=== PATIENT | male | born 2005 | race Caucasian/White ===

== ENCOUNTER 2024-09-29 23:27 | Inpatient (IN) | payer OTHER ==
[~2024-09-29] VITALS: Ht 180.3 cm; Wt 98.9 kg
[2024-09-29 23:27] VITALS: PULSE 143; RESP 20; O2SAT 98
[2024-09-29] MEDS: SODIUM CHLORIDE 0.9% 1,000 ML IV ONE (23:36)
[2024-09-29 23:56] LABS: INR 1.2; PROTHROMBIN TIME 12.4 sec (9.6-11.0)
[2024-09-30] VITALS (79 sets, daily range): BP systolic 98–132; BP diastolic 70–96; PULSE 85–115; RESP 16–29; TEMP 37.1; O2SAT 84–100
[2024-09-30 00:03] LABS: CHLORIDE 106 mEq/L (98-107); POTASSIUM 4.6 mEq/L (3.5-5.1); SODIUM 141 mEq/L (136-145)
[2024-09-30 00:03] LABS: CLARITY URINE CLOUDY (CLEAR); COLOR URINE DARK YELLOW (YELLOW); GLUCOSE URINE NEGATIVE (NEGATIVE); KETONES URINE TRACE (NEGATIVE); LEUKOCYTE ESTERASE URINE NEGATIVE (NEGATIVE); NITRITE URINE NEGATIVE (NEGATIVE); OCCULT BLOOD URINE 3+ (NEGATIVE); PH URINE 5.5 (4.5-8.0); PROTEIN URINE 3+ (NEGATIVE)
[2024-09-30 00:04] LABS: CALCIUM 8.8 mg/dL (8.7-10.4); CARBON DIOXIDE 20 mEq/L (21-32)
[2024-09-30 00:08] LABS: UREA NITROGEN BLOOD 23 mg/dL (9-23)
[2024-09-30 00:09] LABS: CREATININE 2.1 mg/dL (0.6-1.3); GLUCOSE 111 mg/dL (70-105)
[2024-09-30 00:10] LABS: ALANINE AMINOTRANSFERASE 14 IU/L (10-49); ALBUMIN 3.8 g/dL (3.2-4.8)
[2024-09-30 00:11] LABS: ASPARTATE AMINOTRANSFERASE 35 IU/L (<34); BILIRUBIN DIRECT 0.2 mg/dL (<=3.0); BILIRUBIN TOTAL 0.5 mg/dL (0.1-1.0); CREATINE KINASE 702 IU/L (46-171); PROTEIN TOTAL 6.1 g/dL (6.0-8.3)
[2024-09-30 00:13] LABS: *AMPHETAMINES SCREEN URINE PRESUMPTIVE POSITIVE (NEGATIVE); *BARBITURATES SCREEN URINE NEGATIVE (NEGATIVE); *BENZODIAZEPINES SCREEN URINE PRESUMPTIVE POSITIVE (NEGATIVE); *COCAINE SCREEN URINE NEGATIVE (NEGATIVE); CANNABINOID URINE SCREEN PRESUMPTIVE POSITIVE (NEGATIVE); METHADONE URINE SCREEN NEGATIVE (NEGATIVE); OPIATES URINE SCREEN NEGATIVE (NEGATIVE); PHENCYCLIDINE URINE SCREEN NEGATIVE (NEGATIVE)
[2024-09-30 00:14] LABS: ECSTASY MDMA SCREEN URINE CONF.TEST INDICATED (NEGATIVE)
[2024-09-30 00:18] LABS: LACTIC ACID 7.5 mmol/L (0.4-2.0)
[2024-09-30 00:25] LABS: ETHANOL BLOOD < 10 mg/dL (<10); TROPONIN I HIGH SENSITIVITY 277 ng/L (3.0-53)
[2024-09-30 00:41] LABS: BASOPHILS % 0.2 % (0.0-2.0); EOSINOPHILS % 0.1 % (0.0-5.0); HEMATOCRIT. 39.5 % (42.0-52.0); LYMPHOCYTES % 25.4 % (20.0-50.0); MEAN CORPUSCULAR VOLUME 90.9 fL (80.0-94.0); MEAN PLATELET VOLUME 7.3 fl (7.4-10.4); MONOCYTES % 5.2 % (2.0-8.0); NEUTROPHILS % 69.1 % (40.0-76.0); PLATELET 169 x1000/uL (130-400); RED BLOOD CELL COUNT 4.35 mill/uL (4.7-6.1); RED CELL DISTRIBUTION WIDTH 12.5 % (11.6-14.6); WHITE BLOOD COUNT 7.5 x1000/uL (4.5-11.0)
[2024-09-30 01:11] LABS: INFLUENZA TYPE A Presumptive Negative (Pres. Neg.)
[2024-09-30 01:12] LABS: INFLUENZA TYPE B Presumptive Negative (Pres. Neg.)
[2024-09-30] MEDS: SODIUM CHLORIDE 0.9% 1,000 ML IV ONE (01:13)
[2024-09-30] MEDS: SODIUM BICARBONATE 8.4% 50MEQ/50ML SYR IV NR (01:14)
[2024-09-30] MEDS ORDERED: DOCUSATE SODIUM 100MG CAPSULE PO PRN (02:15)
[2024-09-30] MEDS ORDERED: GUAIFENESIN 200MG/10ML SUGAR FREE UDC PO PRN (02:15)
[2024-09-30] MEDS ORDERED: ONDANSETRON HCL 4MG/2ML INJ IV PRN (02:15)
[2024-09-30] MEDS ORDERED: ACETAMINOPHEN 650MG SUPP PR PRN (02:15)
[2024-09-30] MEDS ORDERED: MIDAZOLAM 100MG/100ML PMX 100 ML IV PRN (02:15)
[2024-09-30] MEDS ORDERED: CLONIDINE 0.1MG TABLET PO PRN (02:15)
[2024-09-30] MEDS ORDERED: MAGNESIUM/ALUMINUM HYDROXIDE/SIMETHICONE 30ML UDC PO PRN (02:15)
[2024-09-30] MEDS ORDERED: LORAZEPAM 0.5MG TABLET PO PRN (02:15)
[2024-09-30 02:16] LABS: BG BASE EXCESS -6.7 mmol/L (-2.0-3.0); BG CARBOXYHEMOGLOBIN 0.1 % (0.5-1.5); BG DEOXYHEMOGLOBIN 0.2 % (0.0-5.0); BG FRACTION INSPIRED OXYGEN 100; BG HCO3 ACT 21.5 mmol/L (21.0-28.0); BG METHEMOGLOBIN 0.3 % (0.5-1.5); BG OXYGEN SATURATION 99.8 % (94.0-98.0); BG OXYHEMOGLOBIN 99.4 % (94.0-98.0); BG PCO2 53.1 mmHg (35.0-48.0); BG PH 7.225 (7.350-7.450); BG PO2 550.9 mmHg (83.0-108.0); BG SAMPLE SITE RIGHT RADIAL; BG TOTAL HEMOGLOBIN 15.3 g/dL (13.5-17.5); BG TOTAL RESPIRATORY RATE 21 b/min; BG VENT MODE VENT - AC
[2024-09-30] MEDS: MIDAZOLAM 100MG/100ML PMX 100 ML IV PRN (02:25)
[2024-09-30] MEDS ORDERED: CEFTRIAXONE 2GM/50ML 50 ML IV SCH (02:30)
[2024-09-30] MEDS: LACTATED RINGERS 1,000 ML IV SCH (02:32)
[2024-09-30] MEDS: MIDAZOLAM HCL 2 MG/2 ML VIAL IV NR (02:32)
[2024-09-30] MEDS ORDERED: SODIUM CHLORIDE 10% FOR INH 15ML NEB INH NR (03:00)
[2024-09-30] MEDS ORDERED: FENTANYL 2500MCG/250ML PMX 250 ML IV PRN (03:30)
[2024-09-30] MEDS: LEVETIRACETAM 1000MG PREMIX 100 ML IV NR (03:39)
[2024-09-30] MEDS: FENTANYL CITRATE 2,500 MCG in SODIUM CHLORIDE 0.9% 200 ML IV PRN (03:48)
[2024-09-30] MEDS: FENTANYL CITRATE/PF 50MCG/ML 2ML VIAL IV NR (03:53)
[2024-09-30] MEDS: ASPIRIN 300MG SUPP PR NR (03:54)
[2024-09-30] MEDS: AZITHROMYCIN 500MG/250ML 250 ML IV SCH (03:58)
[2024-09-30 04:20] LABS: TROPONIN I HIGH SENSITIVITY 867 ng/L (3.0-53)
[2024-09-30 04:44] LABS: BACTERIA URINE TRACE; RBC URINE 0-2 /hpf (0-2); SQUAMOUS EPITHELIAL CELL URINE 1+ /lpf (RARE/1+)
[2024-09-30 04:45] LABS: MUCUS URINE 2+ /lpf (NONE/TRACE)
[2024-09-30 06:19] LABS: PHOSPHORUS 1.1 mg/dL (2.5-4.9)
[2024-09-30 06:29] LABS: CREATINE KINASE 4675 IU/L (46-171)
[2024-09-30 07:59] LABS: TROPONIN I HIGH SENSITIVITY 1065 ng/L (3.0-53)
[2024-09-30 08:11] LABS: POTASSIUM 3.9 mEq/L (3.5-5.1)
[2024-09-30 08:12] LABS: CALCIUM 7.8 mg/dL (8.7-10.4)
[2024-09-30 08:17] LABS: CREATININE 1.6 mg/dL (0.6-1.3)
[2024-09-30] MEDS: IPRATROPIUM/ALBUTEROL 0.5-3(2.5)MG/3ML NEB HHN PRN (08:33)
[2024-09-30] MEDS: PANTOPRAZOLE SODIUM 40 MG/VIAL IV SCH (08:35)
[2024-09-30] MEDS: ENOXAPARIN 40MG/0.4ML SYR SUBCUT SCH (08:35)
[2024-09-30] MEDS: LEVETIRACETAM 500MG PREMIX 100 ML IV SCH (08:38)
[2024-09-30] MEDS: SODIUM CHLORIDE 0.9% 1,000 ML IV SCH (08:38)
[2024-09-30] MEDS ORDERED: LORAZEPAM 2MG/ML INJ IV PRN (08:45)
[2024-09-30 08:49] LABS: HEMATOCRIT. 43.5 % (42.0-52.0); HEMOGLOBIN. 14.2 g/dL (14.0-18.0); MEAN CORPUSCULAR HGB CONC 32.7 g/dL (31.0-37.0); MEAN CORPUSCULAR VOLUME 88.6 fL (80.0-94.0); MEAN PLATELET VOLUME 7.5 fl (7.4-10.4); PLATELET 163 x1000/uL (130-400); RED BLOOD CELL COUNT 4.91 mill/uL (4.7-6.1); WHITE BLOOD COUNT 12.2 x1000/uL (4.5-11.0)
[2024-09-30 09:09] LABS: DIFFERENTIAL COMMENT 1
[2024-09-30 11:25] LABS: NUCLEATED RED BLOOD CELLS 1 /100 WBC; PLATELET ESTIMATE NORMAL
[2024-09-30] MEDS: DEXT 5%/0.9% NACL 1,000 ML IV SCH (12:00)
[2024-09-30] MEDS: SODIUM PHOSPHATE 30 MMOL in DEXT 5% WATER 490 ML IV NR (13:55)
[2024-09-30 14:23] LABS: BG BASE EXCESS -3.5 mmol/L (-2.0-3.0); BG CARBOXYHEMOGLOBIN 0.5 % (0.5-1.5); BG DEOXYHEMOGLOBIN 10.6 % (0.0-5.0); BG FRACTION INSPIRED OXYGEN 50; BG OXYGEN SATURATION 89.3 % (94.0-98.0); BG OXYHEMOGLOBIN 88.9 % (94.0-98.0); BG PCO2 36.8 mmHg (35.0-48.0); BG PH 7.375 (7.350-7.450); BG SAMPLE SITE RIGHT RADIAL; BG VENT MODE VENT - AC
[2024-09-30 15:28] LABS: CREATINE KINASE MB FRACTION 62.6 ng/mL (0.5-3.6)
[2024-09-30] MEDS: ACETAMINOPHEN 650MG/20.3ML UDC PO PRN (15:47)
[2024-10-01] VITALS (94 sets, daily range): BP systolic 87–128; BP diastolic 52–87; PULSE 83–124; RESP 11–34; TEMP 99.6–101.3; O2SAT 93–100
[2024-10-01 06:11] LABS: BASOPHILS % 0.1 % (0.0-2.0); HEMATOCRIT. 40.5 % (42.0-52.0); HEMOGLOBIN. 13.5 g/dL (14.0-18.0); LYMPHOCYTES % 14.2 % (20.0-50.0); MEAN CORPUSCULAR HEMOGLOBIN 30.1 pg (28.0-32.0); MEAN CORPUSCULAR HGB CONC 33.2 g/dL (31.0-37.0); MEAN CORPUSCULAR VOLUME 90.8 fL (80.0-94.0); MEAN PLATELET VOLUME 7.5 fl (7.4-10.4); MONOCYTES % 11.4 % (2.0-8.0); NEUTROPHILS % 74.3 % (40.0-76.0); PLATELET 58 x1000/uL (130-400); RED BLOOD CELL COUNT 4.46 mill/uL (4.7-6.1); RED CELL DISTRIBUTION WIDTH 13.1 % (11.6-14.6); WHITE BLOOD COUNT 10.1 x1000/uL (4.5-11.0)
[2024-10-01 06:45] LABS: CARBON DIOXIDE 24 mEq/L (21-32); CHLORIDE 110 mEq/L (98-107); SODIUM 148 mEq/L (136-145)
[2024-10-01 06:46] LABS: CALCIUM 7.7 mg/dL (8.7-10.4)
[2024-10-01 06:51] LABS: CREATININE 1.2 mg/dL (0.6-1.3); GLUCOSE 97 mg/dL (70-105); UREA NITROGEN BLOOD 14 mg/dL (9-23)
[2024-10-01] MEDS ORDERED: HALOPERIDOL LACTATE 5MG/ML VIAL IM PRN ×2 (09:00→17:00)
[2024-10-01] MEDS ORDERED: LORAZEPAM 2MG/ML INJ IV PRN (09:00)
[2024-10-01 09:07] LABS: BG DEOXYHEMOGLOBIN 0.9 % (0.0-5.0); BG FRACTION INSPIRED OXYGEN 50; BG HCO3 ACT 21.4 mmol/L (21.0-28.0); BG METHEMOGLOBIN 0.3 % (0.5-1.5); BG OXYGEN SATURATION 99.1 % (94.0-98.0); BG OXYHEMOGLOBIN 98.8 % (94.0-98.0); BG PCO2 29.2 mmHg (35.0-48.0); BG PH 7.482 (7.350-7.450); BG PO2 150.5 mmHg (83.0-108.0); BG SAMPLE SITE RIGHT RADIAL; BG TOTAL HEMOGLOBIN 13.5 g/dL (13.5-17.5); BG VENT MODE VENT - AC
[2024-10-01 11:23] LABS: TROPONIN I HIGH SENSITIVITY 2303 ng/L (3.0-53)
[2024-10-01 11:36] LABS: BG BASE EXCESS -1.4 mmol/L (-2.0-3.0); BG CARBOXYHEMOGLOBIN 0.1 % (0.5-1.5); BG DEOXYHEMOGLOBIN 3.2 % (0.0-5.0); BG FRACTION INSPIRED OXYGEN 40; BG HCO3 ACT 23.4 mmol/L (21.0-28.0); BG METHEMOGLOBIN 0.3 % (0.5-1.5); BG OXYGEN SATURATION 96.8 % (94.0-98.0); BG OXYHEMOGLOBIN 96.4 % (94.0-98.0); BG PCO2 39.5 mmHg (35.0-48.0); BG PO2 88.1 mmHg (83.0-108.0); BG SAMPLE SITE RIGHT RADIAL; BG TOTAL HEMOGLOBIN 13.8 g/dL (13.5-17.5); BG VENT MODE VENT - CPAP
[2024-10-01] MEDS: LEVOFLOXACIN 750MG PREMIX 150 ML IV SCH (18:21)
[2024-10-01] MEDS: ACETAMINOPHEN 650MG/20.3ML UDC PO SCH (20:13)
[2024-10-01] MEDS: LORAZEPAM 2MG/ML INJ IV PRN (22:03)
[2024-10-02] VITALS (26 sets, daily range): BP systolic 59–149; BP diastolic 25–106; PULSE 86–121; RESP 12–36; TEMP 37.3–38.4; O2SAT 80–99
[2024-10-02] MEDS: ACETAMINOPHEN 650MG/20.3ML UDC PO PRN (04:23)
[2024-10-02 05:57] LABS: HEMOGLOBIN 12.4 g/dL (14.0-18.0); MEAN CORPUSCULAR HGB CONC 33.4 g/dL (31.0-37.0); MEAN CORPUSCULAR VOLUME 89.7 fL (80.0-94.0); PLATELET 69 x1000/uL (130-400); RED BLOOD CELL COUNT 4.13 mill/uL (4.7-6.1); RED CELL DISTRIBUTION WIDTH 12.9 % (11.6-14.6); WHITE BLOOD COUNT 8.4 x1000/uL (4.5-11.0)
[2024-10-02 06:53] LABS: CHLORIDE 112 mEq/L (98-107); SODIUM 142 mEq/L (136-145)
[2024-10-02 06:54] LABS: CALCIUM 8.1 mg/dL (8.7-10.4); CARBON DIOXIDE 24 mEq/L (21-32)
[2024-10-02 06:59] LABS: CREATININE 0.8 mg/dL (0.6-1.3); GLUCOSE 118 mg/dL (70-105); UREA NITROGEN BLOOD 8 mg/dL (9-23)
[2024-10-02 07:01] LABS: ALANINE AMINOTRANSFERASE 384 IU/L (10-49); ALBUMIN 3.2 g/dL (3.2-4.8); ASPARTATE AMINOTRANSFERASE 414 IU/L (<34); BILIRUBIN DIRECT 0.7 mg/dL (<=3.0); BILIRUBIN TOTAL 1.6 mg/dL (0.1-1.0); PROTEIN TOTAL 5.3 g/dL (6.0-8.3)
[2024-10-03] VITALS (7 sets, daily range): BP systolic 119–134; BP diastolic 64–89; PULSE 88–100; RESP 18–20; TEMP 36.4–39.7; O2SAT 95–98
[2024-10-03] MEDS: LORAZEPAM 2MG/ML INJ IV NR (00:56)
[2024-10-03] MEDS: HALOPERIDOL LACTATE 5MG/ML VIAL IM NR (02:29)
[2024-10-03 06:51] LABS: HEMATOCRIT 36.1 % (42.0-52.0); HEMOGLOBIN 12.2 g/dL (14.0-18.0); MEAN CORPUSCULAR HEMOGLOBIN 29.7 pg (28.0-32.0); MEAN CORPUSCULAR HGB CONC 33.8 g/dL (31.0-37.0); MEAN CORPUSCULAR VOLUME 87.8 fL (80.0-94.0); PLATELET 84 x1000/uL (130-400); RED BLOOD CELL COUNT 4.11 mill/uL (4.7-6.1); RED CELL DISTRIBUTION WIDTH 12.5 % (11.6-14.6); WHITE BLOOD COUNT 8.3 x1000/uL (4.5-11.0)
[2024-10-03 07:12] LABS: CHLORIDE 109 mEq/L (98-107); POTASSIUM 3.8 mEq/L (3.5-5.1); SODIUM 142 mEq/L (136-145)
[2024-10-03 07:13] LABS: CALCIUM 8.8 mg/dL (8.7-10.4); CARBON DIOXIDE 23 mEq/L (21-32)
[2024-10-03 07:18] LABS: CREATININE 0.7 mg/dL (0.6-1.3); UREA NITROGEN BLOOD 8 mg/dL (9-23)
[2024-10-03 07:26] LABS: GLUCOSE 91 mg/dL (70-105)
[2024-10-03 07:35] LABS: CREATINE KINASE 27206 IU/L (46-171)
[2024-10-03] MEDS: ALPRAZOLAM 0.25 MG TABLET PO NR (13:53)
[2024-10-03 16:03] LABS: ALANINE AMINOTRANSFERASE 395 IU/L (10-49); ALBUMIN 3.7 g/dL (3.2-4.8); ASPARTATE AMINOTRANSFERASE 692 IU/L (<34); BILIRUBIN DIRECT 0.7 mg/dL (<=3.0); BILIRUBIN TOTAL 1.6 mg/dL (0.1-1.0); PROTEIN TOTAL 6.2 g/dL (6.0-8.3)
[2024-10-03 21:58] LABS: AMMONIA 22 uMol/L (<32)
[2024-10-03 22:13] LABS: HEPATITIS B SURFACE ANTIGEN NEGATIVE (Negative)
[2024-10-03 22:34] LABS: HEPATITIS A AB IGM NEGATIVE (Negative); HEPATITIS B CORE AB IGM NEGATIVE (Negative)
[2024-10-03 22:35] LABS: HEPATITIS C AB NON REACTIVE (Neg) (Negative)
[2024-10-04] VITALS: BP 119/70; PULSE 79; RESP 18; TEMP 36.4; O2SAT 95
[2024-10-04 04:00] VITALS: BP 127/70; PULSE 85; RESP 15; TEMP 37; O2SAT 96
[2024-10-04 08:00] VITALS: BP 125/85; PULSE 100; RESP 18; TEMP 37.5; O2SAT 98
[2024-10-04 12:00] VITALS: BP 133/80; PULSE 18; RESP 18; TEMP 37.5; O2SAT 98
[2024-10-04 12:53] LABS: HEMATOCRIT 40.6 % (42.0-52.0); HEMOGLOBIN 13.6 g/dL (14.0-18.0); MEAN CORPUSCULAR HEMOGLOBIN 29.5 pg (28.0-32.0); MEAN CORPUSCULAR HGB CONC 33.6 g/dL (31.0-37.0); MEAN CORPUSCULAR VOLUME 87.6 fL (80.0-94.0); PLATELET 150 x1000/uL (130-400); RED BLOOD CELL COUNT 4.63 mill/uL (4.7-6.1); RED CELL DISTRIBUTION WIDTH 12.5 % (11.6-14.6); WHITE BLOOD COUNT 6.8 x1000/uL (4.5-11.0)
[2024-10-04 13:05] LABS: CHLORIDE 109 mEq/L (98-107); POTASSIUM 3.8 mEq/L (3.5-5.1); SODIUM 141 mEq/L (136-145)
[2024-10-04 13:06] LABS: CALCIUM 9.2 mg/dL (8.7-10.4); CARBON DIOXIDE 22 mEq/L (21-32)
[2024-10-04 13:11] LABS: CREATININE 0.7 mg/dL (0.6-1.3); GLUCOSE 104 mg/dL (70-105); UREA NITROGEN BLOOD 11 mg/dL (9-23)
[2024-10-04 13:13] LABS: ALANINE AMINOTRANSFERASE 526 IU/L (10-49); ALBUMIN 3.9 g/dL (3.2-4.8); ASPARTATE AMINOTRANSFERASE > 1000 IU/L (<34); BILIRUBIN DIRECT 0.4 mg/dL (<=3.0); BILIRUBIN TOTAL 1.1 mg/dL (0.1-1.0); PROTEIN TOTAL 6.7 g/dL (6.0-8.3)
[2024-10-04 13:28] LABS: CREATINE KINASE > 39000 IU/L (46-171)
[2024-10-04 16:00] VITALS: BP 144/81; PULSE 92; RESP 18; TEMP 37.2; O2SAT 99
[2024-10-04 20:00] VITALS: BP 130/77; PULSE 76; RESP 18; TEMP 36.7; O2SAT 97
[2024-10-05] VITALS: BP 117/58; PULSE 83; RESP 18; TEMP 36.9; O2SAT 96
[2024-10-05 04:00] VITALS: BP 108/47; PULSE 73; RESP 18; TEMP 36.1; O2SAT 98
[2024-10-05 08:00] VITALS: BP 142/81; PULSE 96; RESP 18; TEMP 38.2; O2SAT 97
[2024-10-05] MEDS ORDERED: DEXTROSE 50% WATER 50ML SYRINGE IV PRN (09:45)
[2024-10-05] MEDS ORDERED: ACETYLCYSTEINE 200MG/ML 20% VIAL 30ML PO ONE (10:00)
[2024-10-05 12:00] VITALS: BP 144/72; PULSE 90; RESP 18; TEMP 36.4; O2SAT 98
[2024-10-05] MEDS: WATER IV NR ×2 (15:58→16:01)
[2024-10-05] MEDS: DEXT 5% IV NR ×2 (15:58→16:01)
[2024-10-05] MEDS: ACETYLCYSTEINE IV NR ×2 (15:58→16:01)
[2024-10-05 16:00] VITALS: BP 120/69; PULSE 81; RESP 18; TEMP 36.9; O2SAT 100
[2024-10-05 17:14] LABS: HEMATOCRIT 40.9 % (42.0-52.0); HEMOGLOBIN 13.8 g/dL (14.0-18.0); MEAN CORPUSCULAR HEMOGLOBIN 29.8 pg (28.0-32.0); MEAN CORPUSCULAR HGB CONC 33.8 g/dL (31.0-37.0); MEAN CORPUSCULAR VOLUME 88.4 fL (80.0-94.0); PLATELET 273 x1000/uL (130-400); RED BLOOD CELL COUNT 4.62 mill/uL (4.7-6.1); RED CELL DISTRIBUTION WIDTH 12.6 % (11.6-14.6); WHITE BLOOD COUNT 5.8 x1000/uL (4.5-11.0)
[2024-10-05 17:23] LABS: INR 1.1; PROTHROMBIN TIME 11.4 sec (9.6-11.0)
[2024-10-05 17:31] LABS: CHLORIDE 106 mEq/L (98-107); POTASSIUM 3.9 mEq/L (3.5-5.1); SODIUM 142 mEq/L (136-145)
[2024-10-05 17:33] LABS: CALCIUM 9.6 mg/dL (8.7-10.4); CARBON DIOXIDE 23 mEq/L (21-32)
[2024-10-05 17:38] LABS: CREATININE 0.8 mg/dL (0.6-1.3); GLUCOSE 104 mg/dL (70-105); UREA NITROGEN BLOOD 12 mg/dL (9-23)
[2024-10-05 17:39] LABS: ALBUMIN 4.2 g/dL (3.2-4.8)
[2024-10-05 17:40] LABS: ALANINE AMINOTRANSFERASE 566 IU/L (10-49); ASPARTATE AMINOTRANSFERASE > 1000 IU/L (<34); BILIRUBIN DIRECT 0.2 mg/dL (<=3.0); BILIRUBIN TOTAL 0.7 mg/dL (0.1-1.0); PROTEIN TOTAL 7.2 g/dL (6.0-8.3)
[2024-10-05 17:41] LABS: TROPONIN I HIGH SENSITIVITY 151 ng/L (3.0-53)
[2024-10-05 18:04] LABS: CREATINE KINASE > 39000 IU/L (46-171)
[2024-10-05] MEDS: DIPHENHYDRAMINE 50MG/ML VIAL IV NR (18:22)
[2024-10-05 20:00] VITALS: BP 124/76; PULSE 92; RESP 20; TEMP 36.5; O2SAT 97
[2024-10-06] VITALS: BP 127/67; PULSE 89; RESP 20; TEMP 36.5; O2SAT 98
[2024-10-06 04:00] VITALS: BP 120/70; PULSE 85; RESP 20; TEMP 36.6; O2SAT 100
[2024-10-06 08:00] VITALS: BP 130/66; PULSE 85; RESP 20; TEMP 36.1; O2SAT 95
[2024-10-06 11:16] LABS: HEMATOCRIT 40.7 % (42.0-52.0); HEMOGLOBIN 13.7 g/dL (14.0-18.0); MEAN CORPUSCULAR HEMOGLOBIN 29.3 pg (28.0-32.0); MEAN CORPUSCULAR HGB CONC 33.7 g/dL (31.0-37.0); MEAN CORPUSCULAR VOLUME 87.2 fL (80.0-94.0); PLATELET 331 x1000/uL (130-400); RED BLOOD CELL COUNT 4.66 mill/uL (4.7-6.1); RED CELL DISTRIBUTION WIDTH 12.4 % (11.6-14.6)
[2024-10-06 11:24] LABS: CHLORIDE 105 mEq/L (98-107); POTASSIUM 3.8 mEq/L (3.5-5.1); SODIUM 139 mEq/L (136-145)
[2024-10-06 11:25] LABS: CALCIUM 9.7 mg/dL (8.7-10.4); CARBON DIOXIDE 24 mEq/L (21-32)
[2024-10-06 11:30] LABS: CREATININE 0.8 mg/dL (0.6-1.3); GLUCOSE 98 mg/dL (70-105)
[2024-10-06 11:31] LABS: UREA NITROGEN BLOOD 14 mg/dL (9-23)
[2024-10-06 11:32] LABS: ALANINE AMINOTRANSFERASE 526 IU/L (10-49); ALBUMIN 4.2 g/dL (3.2-4.8); ASPARTATE AMINOTRANSFERASE 951 IU/L (<34)
[2024-10-06 11:33] LABS: BILIRUBIN DIRECT 0.2 mg/dL (<=3.0); BILIRUBIN TOTAL 0.7 mg/dL (0.1-1.0)
[2024-10-06 12:00] VITALS: BP 129/78; PULSE 71; RESP 17; TEMP 36.8; O2SAT 99
[2024-10-06] MEDS ORDERED: IOHEXOL-300 100 ML BOTTLE ONE (12:51)
[2024-10-06] MEDS: LEVOFLOXACIN 750MG PREMIX 150 ML IV SCH (13:59)
[2024-10-06 14:59] LABS: CREATINE KINASE 38859 IU/L (46-171)
[2024-10-06 16:00] VITALS: BP 124/55; PULSE 74; RESP 18; TEMP 37; O2SAT 98
[2024-10-06 20:00] VITALS: BP 138/81; PULSE 79; RESP 18; TEMP 36.8; O2SAT 98
[2024-10-06] MEDS: ENOXAPARIN 30MG/0.3ML SYR SUBCUT SCH (20:44)
[2024-10-07] VITALS: BP 116/64; PULSE 65; RESP 18; TEMP 36.7; O2SAT 97
[2024-10-07 04:00] VITALS: BP 122/73; PULSE 72; RESP 20; TEMP 37; O2SAT 98
[2024-10-07 06:07] LABS: CARBON DIOXIDE 26 mEq/L (21-32); CHLORIDE 107 mEq/L (98-107); POTASSIUM 4.2 mEq/L (3.5-5.1); SODIUM 141 mEq/L (136-145)
[2024-10-07 06:08] LABS: CALCIUM 9.4 mg/dL (8.7-10.4)
[2024-10-07 06:12] LABS: CREATININE 0.7 mg/dL (0.6-1.3); GLUCOSE 91 mg/dL (70-105)
[2024-10-07 06:13] LABS: UREA NITROGEN BLOOD 14 mg/dL (9-23)
[2024-10-07 06:14] LABS: ALANINE AMINOTRANSFERASE 424 IU/L (10-49); ALBUMIN 3.8 g/dL (3.2-4.8); ASPARTATE AMINOTRANSFERASE 653 IU/L (<34)
[2024-10-07 06:15] LABS: BILIRUBIN TOTAL 0.7 mg/dL (0.1-1.0); PROTEIN TOTAL 6.2 g/dL (6.0-8.3)
[2024-10-07 06:38] LABS: HEMATOCRIT 38.4 % (42.0-52.0); MEAN CORPUSCULAR HEMOGLOBIN 29.6 pg (28.0-32.0); MEAN CORPUSCULAR HGB CONC 33.9 g/dL (31.0-37.0); MEAN CORPUSCULAR VOLUME 87.4 fL (80.0-94.0); PLATELET 370 x1000/uL (130-400); RED CELL DISTRIBUTION WIDTH 12.2 % (11.6-14.6); WHITE BLOOD COUNT 7.3 x1000/uL (4.5-11.0)
[2024-10-07 08:00] VITALS: PULSE 77; RESP 20; TEMP 36.4; O2SAT 97
[2024-10-07 12:00] VITALS: BP 133/58; PULSE 91; RESP 20; TEMP 35.9
[2024-10-07] MEDS ORDERED: LEVO750T68 PO (12:25)
[2024-10-07 12:56] VITALS: BP 133/58; PULSE 91; TEMP 96.6; O2SAT 97
[2024-10-08 13:08] LABS: ANTI-NUCLEAR ANTIBODIES DIRECT Negative (Negative)
[2024-10-09 04:07] LABS: ACTIN (SMOOTH MUSCLE) ANTIBODY 4 Units (0-19)
== END 2024-10-07 14:00 | disposition home or self-care (01) | DRG 917 ==
LOC: ER 23:36 → EDBEDREQ 23:38 → EDBEDREQTM 23:43 → CVICU 09-30 01:02 → EDBEDREQ 09-30 01:08 → 8WST 10-02 12:06
PROVIDERS: ADMIT Hospitalist; ATTEND Hospitalist
PROC: 5A1945Z Respiratory Ventilation, 24-96 Consecutive Hours (ICD-10-PCS; principal; 2024-09-29)
PROC: 4A00X4Z Measurement of Central Nervous Electrical Activity, External Approach (ICD-10-PCS; 2024-10-03)
DX: T43.621A Poisoning by amphetamines, accidental (unintentional), initial encounter (principal); G92.8 Other toxic encephalopathy; J96.01 Acute respiratory failure with hypoxia; J69.0 Pneumonitis due to inhalation of food and vomit; I21.A1 Myocardial infarction type 2; J15.0 Pneumonia due to Klebsiella pneumoniae; T88.3XXA Malignant hyperthermia due to anesthesia, initial encounter; N17.9 Acute kidney failure, unspecified; E87.20 Acidosis, unspecified; M62.82 Rhabdomyolysis; J84.9 Interstitial pulmonary disease, unspecified; E86.0 Dehydration; F15.10 Other stimulant abuse, uncomplicated; F41.9 Anxiety disorder, unspecified; K82.8 Other specified diseases of gallbladder; B96.1 Klebsiella pneumoniae [K. pneumoniae] as the cause of diseases classified elsewhere; R16.2 Hepatomegaly with splenomegaly, not elsewhere classified; F19.10 Other psychoactive substance abuse, uncomplicated; R74.01 Elevation of levels of liver transaminase levels; Z88.0 Allergy status to penicillin; Z90.49 Acquired absence of other specified parts of digestive tract; Y92.89 Other specified places as the place of occurrence of the external cause; Y84.8 Other medical procedures as the cause of abnormal reaction of the patient, or of later complication, without mention of misadventure at the time of the procedure
CPT/HCPCS: 36415; 36600; 70551; 71045; 74177; 76700; 80048; 80053; 80076; 80305; 80307; 80320; 80329; 81003; 82140; 82330; 82375; 82390; 82550; 82553; 82728; 82805; 82962; 83605; 83735; 83880; 84100; 84145; 84484; 85025; 85027; 86038; 86705; 86709; 87070; 87077; 87186; 87340; 87804; 92610; 93005; 93306; 94003; 94070; 94640; 94664; 95816; 99291; A4606; J0132; J0456; J0696; J1200; J1630; J1650; J1953; J1956; J2060; J2250; J2470; J3010; J3490; J7030; J7042; J7050; J7060; J7131; Q9967; G0480